=== PATIENT | male | born 1960 | race Caucasian/White ===

== ENCOUNTER 2017-10-21 08:45 | Outpatient (RCR) | payer OTHER | END 2018-01-10 | disposition home or self-care (01) | LOC: WSPT | DX: M75.02 Adhesive capsulitis of left shoulder (principal); M24.612 Ankylosis, left shoulder ==

== ENCOUNTER 2019-01-21 08:10 | Outpatient (RCR) | payer OTHER | END 2019-01-25 14:14 | disposition home or self-care (01) | LOC: WSPT 08:10 | DX: M48.02 Spinal stenosis, cervical region (principal) ==